=== PATIENT | female | born 1955 | race Caucasian/White ===

== ENCOUNTER 2023-03-02 19:12 | Observation (INO) | payer OTHER, MEDICARE ==
[~2023-03-02] VITALS: Ht 152.4 cm; Wt 64.2 kg
[2023-03-02 19:47] LABS: BASOPHILS ABSOLUTE AUTO 0.06 K/mm3 (0.00-0.23); BASOPHILS PERCENT AUTO 1 % (0-2); EOSINOPHILS PERCENT AUTO 1 % (0-6); Hematocrit 43.5 % (33.0-51.0); Hemoglobin 13.7 g/dL (11.5-16.0); IMMATURE GRAN ABSOLUTE AUTO 0.04 K/mm3 (0.00-0.10); IMMATURE GRAN PERCENT AUTO 0 % (0-1); LYMPHOCYTES ABSOLUTE AUTO 3.06 K/mm3 (0.84-5.20); LYMPHOCYTES PERCENT AUTO 24 % (21-46); MONOCYTES ABSOLUTE AUTO 0.66 K/mm3 (0.16-1.47); MONOCYTES PERCENT AUTO 5 % (4-13); Mean Corpuscular HGB Conc 31.5 g/dL (31.5-36.5); Mean Corpuscular Volume 89 fL (80-100); Mean Platelet Volume 12.5 fL (9.1-12.4); NEUTROPHILS ABSOLUTE AUTO 8.76 K/mm3 (1.96-9.15); NEUTROPHILS PERCENT AUTO 69 % (41-73); Platelet Count 195 K/mm3 (150-400); RDW Coefficient Variation 13.2 % (11.7-14.2); RDW Standard Deviation 42.8 fL (35.1-46.3); Red Blood Cell Count 4.89 M/mm3 (3.80-5.20); White Blood Cell Count 12.68 K/mm3 (4.00-11.30)
[2023-03-02 20:07] LABS: Albumin, Blood 3.8 g/dL (3.4-5.0); Albumin/Globulin Ratio 1.1 (0.8-1.8); Bilirubin, Total 0.6 mg/dL (0.1-1.0); Calcium, Blood 8.9 mg/dL (8.5-10.1); Creatinine, Blood 0.88 mg/dL (0.40-1.00); Globulin, Blood 3.5 g/dL (2.2-4.0); Potassium, Blood 3.3 mmol/L (3.5-5.5); Total Protein, Blood 7.3 g/dL (6.4-8.2)
[2023-03-03 00:45] VITALS: BP 183/83
[2023-03-03 02:36] VITALS: BP 173/78
[2023-03-03 03:49] VITALS: BP 144/61
[2023-03-03 05:05] LABS: BASOPHILS ABSOLUTE AUTO 0.03 K/mm3 (0.00-0.23); BASOPHILS PERCENT AUTO 0 % (0-2); EOSINOPHILS ABSOLUTE AUTO 0.04 K/mm3 (0.00-0.68); EOSINOPHILS PERCENT AUTO 0 % (0-6); Hematocrit 39.5 % (33.0-51.0); Hemoglobin 13.3 g/dL (11.5-16.0); IMMATURE GRAN ABSOLUTE AUTO 0.03 K/mm3 (0.00-0.10); IMMATURE GRAN PERCENT AUTO 0 % (0-1); LYMPHOCYTES ABSOLUTE AUTO 2.07 K/mm3 (0.84-5.20); LYMPHOCYTES PERCENT AUTO 23 % (21-46); MONOCYTES ABSOLUTE AUTO 0.47 K/mm3 (0.16-1.47); MONOCYTES PERCENT AUTO 5 % (4-13); Mean Corpuscular HGB 27.8 pg (26.0-34.0); Mean Corpuscular HGB Conc 33.7 g/dL (31.5-36.5); NEUTROPHILS ABSOLUTE AUTO 6.54 K/mm3 (1.96-9.15); NEUTROPHILS PERCENT AUTO 71 % (41-73); Platelet Count 201 K/mm3 (150-400); RDW Coefficient Variation 13.2 % (11.7-14.2); RDW Standard Deviation 39.6 fL (35.1-46.3); Red Blood Cell Count 4.78 M/mm3 (3.80-5.20); White Blood Cell Count 9.18 K/mm3 (4.00-11.30)
[2023-03-03 05:06] LABS: Mean Corpuscular Volume 83 fL (80-100)
--- NOTE | 2023-03-03 05:13 | NUR ---
LATE ENTRY- ER ADMIT PT ADMIT FROM ER. ALERT AND ORIENTED X4. REPORTS A HISTORY OF ANXIETY THAT SHE DOES NOT USE MEDICAITON FOR. TREATED HIGH BLOOD PRESSURE. CAN BE INDEPENDENT IN THE ROOM HOWEVER ASK THAT SHE CALL THE FIRST FEW TIMES SHE GETS UP TO USE THE REST ROOM. WAITING ON UA SAMPLE. PT ON R/A. EDUCATION PROVIDED ON RISKS OF INJURY WHILE USING AN IGNITION SOURCE AROUND OXYGEN. THE PT VERBALIZES UNDERSTANDING AND DENY HAVING ANY IGNITION SOURCES
[2023-03-03 05:37] LABS: Source, Urine Clean Catch
[2023-03-03 05:38] LABS: Albumin, Blood 3.3 g/dL (3.4-5.0); Albumin/Globulin Ratio 1.1 (0.8-1.8); Bilirubin, Total 0.7 mg/dL (0.1-1.0); Bun/Creatinine Ratio 20.1 (12.0-20.0); Calcium, Blood 8.6 mg/dL (8.5-10.1); Creatinine, Blood 0.85 mg/dL (0.40-1.00); Potassium, Blood 4.2 mmol/L (3.5-5.5); Total Protein, Blood 6.3 g/dL (6.4-8.2)
[2023-03-03 05:48] LABS: Appearance, Urine Clear (Clear); Bilirubin, Urine Neg (Neg); Blood, Urine 2+ (Neg); Color, Urine Yellow (P-Yellow); Glucose Qualitative, Urine Neg (Neg); Ketones, Urine Neg (Neg); Leukocyte Esterase, Urine Neg (Neg); Nitrite, Urine Neg (Neg); Protein, Urine Neg (Neg); Urobilinogen, Urine NORM (Normal)
[2023-03-03 05:57] LABS: Bacteria Not Seen /hpf; Red Blood Cells, Urine 0-2 /hpf (0-2); Squamous Epithelial Cells Few /hpf (Few); White Blood Cells, Urine Not Seen /hpf (0-5)
[2023-03-03 07:49] VITALS: BP 137/60
[2023-03-03 16:02] VITALS: BP 161/73
[2023-03-03] MEDS ORDERED: Prinivil10 MG PO (16:29)
[2023-03-03] MEDS ORDERED: ASPI81CH PO (16:29)
[2023-03-03] MEDS ORDERED: PRAVASTATIN SOD40 MG PO (16:30)
--- NOTE | 2023-03-03 17:45 | NUR ---
SHIFT/DISCHARGE SUMMARY: PATIENT A&OX4. CALM, PLEASANT AND COOPERATIVE c CARE. USES CALL LIGHT APPROPRIATELY AND ABLE TO MAKE NEEDS KNOWN. AT BEGINNING OF SHIFT PATIENT REPORTS HAVING "FLUSHED SKIN" TO HER FACE, CHEST AND BACK, PER PATIENT IT STARTED WHEN SHE RECEIVED IV HYDRALAZINE AT AROUND 0300. PATIENT DENIES ITCHINESS, SOB, SORE THROAT, HEADACHE, N/V CP/PRESSURE. DR. LEONARD IS AWARE OF THE PATIENT ISSUES. ON TELE, HR IN THE HIGH 60'S BPM. PATIENT HAD MRI AND CAROTID DUPLEX DONE TODAY c RESULT. PATIENT AMBULATES TO BATHROOM AND BACK IN BED INDEPENDENTLY T/O SHIFT. SENSATIONS AND STRENGTH INTACT TO ALL EXTREMITIES c NO DEFICIT NOTED. VITAL SIGNS REVIEWED. RECEIVED SCHEDULED MEDS PER EMAR. PIV TO R HAND DC'D. PATIENT EDUCATED ON NON SMOKING POLICY, RISK OF INJURY, AND IGNITION SOURCES WHEN O2 IN USE. PATIENT DENIES SMOKING AND VERBALIZED UNDERSTANDING. PATIENT DISCHARGE HOME. DISCHARGE INSTRUCTIONS PACKET GIVEN TO PATIENT. EDUCATE PATIENT REGARDING ADMITTING DX, S/S, TX, DIET, SELF CARE, AND NEW PRESCRIBED MEDICATIONS. PATIENT STATED UNDERSTANDING AND NO FURTHER QUESTIONS. RX WAS FAXED TO PATIENT PREFERRED [facility]ARMACY ([facility] PATIENT STILL IN ROOM AT THIS TIME, AWAITING FOR SON TO PICKED HER UP. CALL LIGHT IN REACH.
== END 2023-03-03 19:23 | disposition home or self-care (01) ==
LOC: ER 19:12 → MEDS 19:13
PROVIDERS: Student in an Organized Health Care Education/Training Program; ADMIT Internal Medicine
DX: G45.9 Transient cerebral ischemic attack, unspecified (principal); I16.0 Hypertensive urgency; I10 Essential (primary) hypertension
CPT/HCPCS: 36415; 70450; 70551; 80053; 81001; 85025; 93005; 93010; 93880; 96374; 99285-25; A9270; J0360; J1650; J2405; J3480; J7030; J7050